=== PATIENT | male | born 1965 | race Caucasian/White ===

== ENCOUNTER → 2017-05-06 | Outpatient (CLI) | payer BC ==
--- NOTE | 2017-05-06 13:51 | DIAGNOSTIC IMAGING REPORT ---
LEFT HAND MIN 3 VIEWS CLINICAL HISTORY: LEFT HAND PAIN COMPARISON: None. DISCUSSION: No fractures or subluxations are visualized. There are no erosive or destructive changes. IMPRESSION: No significant bony abnormalities identified. Electronically signed by: Kashif Jimenez M.D. 05/06/2017 1:50 PM Dictated Date/Time: 05/06/2017 1:49 PM
== END | disposition home or self-care (01) ==
LOC: C.RDSM 15:30
PROVIDERS: ATTEND Physician Assistant
DX: M79.642 Pain in left hand (principal)

== ENCOUNTER → 2017-10-29 | Outpatient (CLI) | payer BC ==
--- NOTE | 2017-10-29 15:54 | DIAGNOSTIC IMAGING REPORT ---
R KNEE 4 OR MORE HISTORY: 52 years-old Male RIGHT KNEE PAIN chronic right knee pain COMPARISON: None available TECHNIQUE: AP view of bilateral knees with sunrise, AP and lateral views of the right knee FINDINGS: There is mild medial and patellofemoral osteoarthritis about the right knee without significant lateral compartment disease. Mild medial compartment joint space narrowing is also seen within the left knee. No acute fracture, dislocation, osteochondral defect or intra-articular loose body. Small joint effusion. IMPRESSION: 1. No acute fracture or dislocation. 2. Small joint effusion with mild degenerative changes of the medial and patellofemoral compartments. The above report was generated using voice recognition software. It may contain grammatical, syntax or spelling errors. Electronically signed by: Ed Arita M.D. 10/29/2017 3:52 PM Dictated Date/Time: 10/29/2017 3:50 PM
== END | disposition home or self-care (01) ==
LOC: C.RDSM 14:21
PROVIDERS: ATTEND Physician Assistant
DX: M17.11 Unilateral primary osteoarthritis, right knee (principal); M25.461 Effusion, right knee